=== PATIENT | female | born 2000 | race Native Hawaiian/Other Pacific Islander ===

== ENCOUNTER 2023-03-22 08:52 | Emergency (ER) | payer MEDICAID ==
[~2023-03-22] VITALS: Ht 165.1 cm; Wt 114.0 kg
[2023-03-22 09:00] VITALS: BP 123/67; PULSE 67; RESP 18; O2SAT 98
[2023-03-22 09:31] LABS: Basophils # (auto) 0 10 ^3/uL (0-0.2); Eosinophils # (auto) 0.1 10 ^3/uL (0-0.8); Hemoglobin 9.3 g/dL (12.2-16.2); Lymphocytes # (auto) 1.8 10 ^3/uL (0.4-5.4)
[2023-03-22 09:33] LABS: Basophils % (auto) 0.3 % (0.0-2.0); Hematocrit 29.9 % (36.0-46.0); Mean Corpuscular Hemoglobin 20.8 pg (28.0-32.0); Mean Corpuscular Hgb Conc. 31.1 g/dL (32.0-36.0); Mean Corpuscular Volume 66.8 fL (80.0-100.0); Monocytes # (auto) 0.3 10 ^3/uL (0-1.3); Monocytes % (auto) 4.2 % (0.0-12.0); Neutrophils # (auto) 5.6 10 ^3/uL (1.6-8.6); Neutrophils % (auto) 71.5 % (37.0-80.0); Red Blood Cells 4.48 10^6/uL (4.0-5.20); White Blood Cell 7.8 10^3/uL (4.4-10.8)
[2023-03-22 11:11] LABS: Albumin 4.5 g/dL (3.2-4.8); Alkaline Phosphatase 75 U/L (46-116); Anion Gap 6 (5-15); BUN/Creatinine Ratio 14.5 (10.0-20.0); Blood Urea Nitrogen 8 mg/dL (9-23); Calcium 9.2 mg/dL (8.7-10.4); Carbon Dioxide 24 mmol/L (20-30); Chloride 107 mmol/L (98-107); Glucose 89 mg/dL (74-106); Lipase 39 U/L (12-53); Potassium 3.8 mmol/L (3.5-5.1); Sodium 137 mmol/L (136-145)
[2023-03-22 11:12] LABS: Bilirubin, Total 0.4 mg/dL (0.2-1.0); Total Protein 7.9 g/dL (5.7-8.2)
[2023-03-22 11:15] LABS: Alanine Aminotransferase 9 U/L (7-40)
[2023-03-22 11:16] LABS: Aspartate Aminotransferase < 8 U/L (13-40)
[2023-03-22 13:55] LABS: Hypochromia Marked; Platelet Estimate Adequate
[2023-03-22 16:42] LABS: Urine WBC None Seen /hpf (0 - 5)
[2023-03-22 17:05] LABS: Urine Amorphous Crystal FEW /hpf (None Seen); Urine Bacteria NONE SEEN /hpf (None Seen); Urine Blood Negative /uL (Negative); Urine Budding Yeast MODERATE /hpf (None Seen); Urine Clarity CLOUDY (Clear); Urine Color Yellow (Yellow); Urine Mucus MANY (None Seen); Urine Protein, UAD TRACE (Negative); Urine Urobilinogen Normal (Negative); Urine pH 5.5 (5.0-8.0)
[2023-03-22] MEDS ORDERED: OMEP-335 PO (20:24)
[2023-03-22] MEDS ORDERED: SIME80CH49 PO (20:24)
== END 2023-03-22 12:59 | disposition left against medical advice (07) ==
LOC: ER 08:52
DX: R10.13 Epigastric pain (principal); D64.9 Anemia, unspecified
CPT/HCPCS: 36415; 76705; 80053; 81001; 83690; 85025

== ENCOUNTER 2023-03-22 15:24 | Emergency (ER) | payer MEDICAID ==
[~2023-03-22] VITALS: Ht 165.1 cm; Wt 107.7 kg
[2023-03-22] MEDS ORDERED: LIDOCAINE VISCOUS 2% 15ML UD PO ONE (16:30)
[2023-03-22] MEDS ORDERED: MAALOX PLUS or MAALOX 30 ML PO ONE (16:30)
[2023-03-22] MEDS ORDERED: OMEP-335 PO (20:24)
[2023-03-22] MEDS ORDERED: SIME80CH49 PO (20:24)
[2023-03-22 20:50] VITALS: BP 127/71; PULSE 64; RESP 18; TEMP 97.6; O2SAT 100
== END 2023-03-22 20:24 | disposition home or self-care (01) ==
LOC: ER 15:24
DX: K21.9 Gastro-esophageal reflux disease without esophagitis (principal)